=== PATIENT | male | born 1965 | race African-American/Black ===

== ENCOUNTER 2017-07-31 13:12 | Inpatient (IN) | payer OTHER ==
[2017-07-31 19:42] VITALS: BMI 27.0
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
[2017-07-31] MEDS ORDERED: ACETAMINOPHEN 325 MG TABLET (FP) PO PRN (21:59)
[2017-07-31] MEDS ORDERED: guaiFENesin/D-METHORPHAN HB 10 ML UNIT-DOSE CUPS PO PRN (21:59)
[2017-07-31] MEDS ORDERED: chlordiazePOXIDE HCL 25 MG CAPSULE PO PRN (21:59)
[2017-07-31] MEDS ORDERED: P-EPHED 60MG/TRIPROLIDI 2.5MG TABLET PO PRN (21:59)
[2017-07-31] MEDS ORDERED: MENTHOL/PHENOL 1 EACH UD MM PRN (21:59)
[2017-07-31] MEDS ORDERED: LOPERAMIDE HCL 2 MG CAPSULE PO PRN (21:59)
[2017-07-31] MEDS ORDERED: NICOTINE POLACRILEX 4 MG GUM BC PRN (21:59)
[2017-07-31] MEDS ORDERED: MAGNESIUM CITRATE 300 ML BOTTLE PO PRN (21:59)
[2017-07-31] MEDS ORDERED: MAG HYDROX/AL HYDROX/SIMETH 30 ML UNIT-DOSE CUP PO PRN (21:59)
[2017-07-31] MEDS ORDERED: MAGNESIUM HYDROX 2400MG/30ML ORAL SUSPENSION 30 ML CUP PO PRN (21:59)
[2017-08-01] MEDS: chlordiazePOXIDE HCL 25 MG CAPSULE PO SCH ×5 (00:01→22:45)
[2017-08-01] MEDS: THIAMINE HCL 100 MG TABLET (FP) PO SCH ×2 (00:01→22:45)
[2017-08-01] MEDS: BACITRACIN 15 GM TUBE TOPICAL OINTMENT TP SCH ×2 (06:11→14:39)
[2017-08-01 10:41] LABS: HEMATOCRIT 40.9 % (35.4-49); HEMOGLOBIN 13.6 GM/dL (11.7-16.9); MCH 35.1 pg (25.7-33.7); MCHC 33.2 g/dl (32.0-35.9); MEAN CELL VOLUME 105.5 fl (80-96); MEAN PLT VOLUME 8.5 fl (7.5-11.1); PLATELET COUNT 208 K/MM3 (134-434); RBC 3.88 M/mm3 (4.00-5.60); RDW 16.2 % (11.9-15.9); WHITE BLOOD COUNT 6.3 K/mm3 (4.0-10.0)
[2017-08-01 10:42] LABS: URINE APPEARANCE CLEAR; URINE BILIRUBIN NEGATIVE (NEGATIVE); URINE BLOOD NEGATIVE (NEGATIVE); URINE COLOR YELLOW; URINE GLUCOSE (UA) NEGATIVE (NEGATIVE); URINE KETONE NEGATIVE (NEGATIVE); URINE LEUK ESTERASE NEGATIVE (NEGATIVE); URINE NITRITE NEGATIVE (NEGATIVE); URINE PROTEIN NEGATIVE (NEGATIVE)
[2017-08-01] MEDS: NICOTINE 14 MG/24 HOURS TOPICAL PATCH TD SCH (10:50)
[2017-08-01] MEDS: PRENATAL VITAMINS W/ FOLIC ACID TABLET (FP) PO SCH (10:50)
[2017-08-01 10:53] LABS: CHLORIDE 105 mmol/L (98-107); POTASSIUM 3.5 mmol/L (3.5-5.1); SODIUM 145 mmol/L (136-145)
[2017-08-01] MEDS: amLODIPine BESYLATE 10 MG TABLET (FP) PO SCH (10:53)
[2017-08-01 11:05] LABS: ALBUMIN 3.4 g/dl (3.4-5.0); ALK PHOS 98 U/L (45-117); ANION GAP 8 (8-16); BILIRUBIN,TOTAL 1.2 mg/dL (0.2-1.0); BLOOD UREA NITROGEN 20 mg/dL (7-18); CALCIUM 8.8 mg/dL (8.5-10.1); CO2 32 mmol/L (21-32); CREATININE 1.3 mg/dL (0.7-1.3); GLUCOSE,RANDOM 83 mg/dL (74-106); SGOT/AST 32 U/L (15-37); SGPT/ALT 37 U/L (12-78); TOT PROT 6.4 g/dl (6.4-8.2)
--- NOTE | 2017-08-01 11:48 | CONSULT ---
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 Substance Abuse History: Confirmed by patient in this session.Details in current [facility] report : Smoking history: Current every day smoker. Have you smoked in the past 12 months: Yes. Aproximately how many cigarettes per day: 10. Hx Chewing Tobacco Use: No. Initiated information on smoking cessation: Yes. 'Breaking Loose' booklet given: 07/31/17. - Substance & Tx. History. Hx Alcohol Use: Yes. Hx Substance Use: Yes. Substance Use Type: Alcohol, Cocaine , Marijuana, Tranquilizers (PCP). Hx Substance Use Treatment: Yes ([facility]I). - Substances Abused. VODKA. Route: Oral. Frequency: Daily. Amount used: 2 PINTS. Age of first use: 19. Date of Last Use: 07/31/17 (1/2 PINT) Medical History: Hypertension and glaucoma in both eyes.Noted history of penile implant in 2015. Psychiatric History: No reported history of psychiatric hospitaizations.Patient informs that he is currently followed at the [facility] health clinic in [facility].Under medication management : seroquel 200 mg/hs.Diagnosed with Intermittent Explosive Disorder.Las toook his medication " a couple of days ago ".Mr Almanzar denies history of suicide attempts. Physical/Sexual Abuse/Trauma History: Patient denies. Additional Comment: Urine Drug Screen Results: THC-Marijuana, WALESKA-Cocaine, PCP- Phencyclidine.Noted. Mental Status Exam - Mental Status Exam Alert and Oriented to: Time, Place, Person Cognitive Function: Good Patient Appearance: Well Groomed Mood: Nervous, Withdrawn (dysphoric) Affect: Mood Congruent Patient Behavior: Appropriate, Cooperative Speech Pattern: Clear Voice Loudness: Normal Thought Process: Intact, Goal Oriented Thought Disorder: Not Present Hallucinations: Denies Suicidal Ideation: Denies Homicidal Ideation: Denies Insight/Judgement: Poor Sleep: Poorly, Difficulty falling asleep Appetite: Good Muscle strength/Tone: Normal Gait/Station: Normal Psychiatric Findings - Problem List (Adams 1, 2,3) (1) Alcohol dependence with uncomplicated withdrawal Current Visit: Yes Status: Acute (2) Cocaine dependence Current Visit: Yes Status: Acute Qualifiers: Substance use status: uncomplicated Qualified Code(s): F14.20 - Cocaine dependence, uncomplicated (3) Marijuana dependence Current Visit: Yes Status: Chronic (4) PCP dependence Current Visit: Yes Status: Chronic (5) Nicotine dependence Current Visit: Yes Status: Chronic Qualifiers: Nicotine product type: cigarettes Substance use status: uncomplicated Qualified Code(s): F17.210 - Nicotine dependence, cigarettes, uncomplicated (6) Substance induced mood disorder Current Visit: Yes Status: Acute (7) Insomnia Current Visit: Yes Status: Acute - Initial Treatment Plan Initial Treatment Plan: Records revisited.Psychoeducation provided in this session.Detoxification in progress.Seroquel 100 mg po hs.Ordered at patient's request (dose intentionally reduced as caution for oversedation).Side effects/ benefits discussed.Patient made aware f potential for oversedation,falls, metabolic syndrome and cardiovascular adverse events.Consent (verbal) given for this plan of care.Observation.[facility] contacted at [phone] (with patient's verbal permission) : no new claims since 2014 and NO script for seroquel.
--- NOTE | 2017-08-01 12:16 | PN ---
S CIWA - CIWA Score Nausea/Vomitin Muscle Tremors: 2 Anxiety: 2 Agitation: 2 Paroxysmal Sweats: 2 Orientation: 0-Oriented Tacttile Disturbances: 1-Very Mild Itch/Numbness Auditory Disturbances: 1-Very Mild Visual Disturbances: 1-Very Mild Sensitivity Headache: 2-Mild CIWA-Ar Total Score: 15 S Progress Note (SOAP) Subjective: Shakes, sweats,diarrhea, bone pain Objective: 08/01/17 12:15 Vital Signs - 8 hr 08/01/17 08/01/17 06:33 09:19 Temperature 97.6 F 97.2 F L Pulse Rate 76 83 Respiratory 18 18 Rate Blood Pressure 145/101 144/104 Laboratory Last Values WBC 6.3 K/mm3 (4.0-10.0) 08/01/17 08:00 RBC 3.88 M/mm3 (4.00-5.60) L 08/01/17 08:00 Hgb 13.6 GM/dL (11.7-16.9) 08/01/17 08:00 Hct 40.9 % (35.4-49) 08/01/17 08:00 MCV 105.5 fl (80-96) H 08/01/17 08:00 MCH 35.1 pg (25.7-33.7) H 08/01/17 08:00 MCHC 33.2 g/dl (32.0-35.9) 08/01/17 08:00 RDW 16.2 % (11.9-15.9) H D 08/01/17 08:00 Plt Count 208 K/MM3 (134-434) 08/01/17 08:00 MPV 8.5 fl (7.5-11.1) 08/01/17 08:00 Sodium 145 mmol/L (136-145) 08/01/17 08:00 Potassium 3.5 mmol/L (3.5-5.1) 08/01/17 08:00 Chloride 105 mmol/L (98-107) 08/01/17 08:00 Carbon Dioxide 32 mmol/L (21-32) 08/01/17 08:00 Anion Gap 8 (8-16) 08/01/17 08:00 BUN 20 mg/dL (7-18) H D 08/01/17 08:00 Creatinine 1.3 mg/dL (0.7-1.3) 08/01/17 08:00 Creat Clearance w eGFR 58.20 (>60) 08/01/17 08:00 Random Glucose 83 mg/dL (74-106) D 08/01/17 08:00 Calcium 8.8 mg/dL (8.5-10.1) 08/01/17 08:00 Total Bilirubin 1.2 mg/dL (0.2-1.0) H 08/01/17 08:00 AST 32 U/L (15-37) D 08/01/17 08:00 ALT 37 U/L (12-78) 08/01/17 08:00 Alkaline Phosphatase 98 U/L (45-117) 08/01/17 08:00 Total Protein 6.4 g/dl (6.4-8.2) 08/01/17 08:00 Albumin 3.4 g/dl (3.4-5.0) 08/01/17 08:00 Urine Color Yellow 08/01/17 09:00 Urine Appearance Clear 08/01/17 09:00 Urine pH 7.0 (5.0-8.0) D 08/01/17 09:00 Ur Specific [place] 1.017 (1.001-1.035) 08/01/17 09:00 Urine Protein Negative (NEGATIVE) 08/01/17 09:00 Urine Glucose (UA) Negative (NEGATIVE) 08/01/17 09:00 Urine Ketones Negative (NEGATIVE) 08/01/17 09:00 Urine Blood Negative (NEGATIVE) 08/01/17 09:00 Urine Nitrite Negative (NEGATIVE) 08/01/17 09:00 Urine Bilirubin Negative (NEGATIVE) 08/01/17 09:00 Urine Urobilinogen 2.0 mg/dL (0.2-1.0) 08/01/17 09:00 Ur Leukocyte Esterase Negative (NEGATIVE) 08/01/17 09:00 HIV 1&2 Antibody Screen Negative 08/01/17 08:00 HIV P24 Antigen Negative 08/01/17 08:00 Labs noted Assessment: 08/01/17 12:15 Withdrawal sx Plan: Continue detox
--- NOTE | 2017-08-01 16:43 | EKG ---
Test Reason : Blood Pressure : / mmHG Vent. Rate : 079 BPM Atrial Rate : 079 BPM P-R Int : 148 ms QRS Dur : 094 ms QT Int : 406 ms P-R-T Axes : 066 029 028 degrees QTc Int : 465 ms NORMAL SINUS RHYTHM POSSIBLE LEFT ATRIAL ENLARGEMENT LEFT VENTRICULAR HYPERTROPHY ABNORMAL ECG NO PREVIOUS ECGS AVAILABLE Confirmed by ISABELLA PEREZ MD ([id number]) on 08/01/2017 4:43:16 PM Referred By: Confirmed By:ISABELLA PEREZ MD
[2017-08-01] MEDS: BACITRACIN 0.9 GM PACKET TP SCH (22:45)
[2017-08-01] MEDS: QUEtiapine FUMARATE 100 MG TABLET (FP) PO SCH (22:45)
[2017-08-01] MEDS: LATANOPROST 0.005% OPHTH SOLN 2.5ML BOTTLE OU SCH (22:46)
[2017-08-01] MEDS: IBUPROFEN 400 MG TABLET (FP) PO PRN (22:47)
[2017-08-02] MEDS: chlordiazePOXIDE HCL 25 MG CAPSULE PO SCH ×3 (07:34→17:17)
[2017-08-02] MEDS: NICOTINE 14 MG/24 HOURS TOPICAL PATCH TD SCH (10:43)
[2017-08-02] MEDS: BACITRACIN 0.9 GM PACKET TP SCH ×2 (10:43→22:37)
[2017-08-02] MEDS: amLODIPine BESYLATE 10 MG TABLET (FP) PO SCH (10:43)
[2017-08-02] MEDS: PRENATAL VITAMINS W/ FOLIC ACID TABLET (FP) PO SCH (10:43)
--- NOTE | 2017-08-02 16:38 | PN ---
BHS CIWA - CIWA Score Nausea/Vomitin Muscle Tremors: 3 Anxiety: 3 Agitation: 3 Paroxysmal Sweats: 2 Orientation: 0-Oriented Tacttile Disturbances: 0-None Auditory Disturbances: 0-None Visual Disturbances: 0-None Headache: 0-None Present CIWA-Ar Total Score: 13 BHS Progress Note (SOAP) Subjective: tremors sweats "some sleep disturbance" Objective: 08/02/17 16:36 Vital Signs Temperature 98.6 F 08/02/17 14:24 Pulse Rate 90 08/02/17 14:24 Respiratory Rate 20 08/02/17 14:24 Blood Pressure 141/96 08/02/17 14:24 O2 Sat by Pulse Oximetry (%) Assessment: 08/02/17 16:37 withdrawal sx Plan: continue detox
[2017-08-02] MEDS: QUEtiapine FUMARATE 100 MG TABLET (FP) PO SCH (22:37)
[2017-08-02] MEDS: THIAMINE HCL 100 MG TABLET (FP) PO SCH (22:37)
[2017-08-02] MEDS: LATANOPROST 0.005% OPHTH SOLN 2.5ML BOTTLE OU SCH (22:37)
[2017-08-02] MEDS: IBUPROFEN 400 MG TABLET (FP) PO PRN (22:38)
[2017-08-02] MEDS: chlordiazePOXIDE 5 MG CAPSULE PO SCH (22:38)
[2017-08-03] MEDS: chlordiazePOXIDE 5 MG CAPSULE PO SCH ×3 (05:40→17:26)
[2017-08-03] MEDS: amLODIPine BESYLATE 10 MG TABLET (FP) PO SCH (10:47)
[2017-08-03] MEDS: BACITRACIN 0.9 GM PACKET TP SCH ×2 (10:47→22:24)
[2017-08-03] MEDS: PRENATAL VITAMINS W/ FOLIC ACID TABLET (FP) PO SCH (10:47)
[2017-08-03] MEDS: NICOTINE 14 MG/24 HOURS TOPICAL PATCH TD SCH (10:48)
--- NOTE | 2017-08-03 12:48 | PN ---
BHS Progress Note (SOAP) Subjective: CALM ,FATIGUE, OOB WITH STAEDY GAIT.. Objective: 08/03/17 12:46 Vital Signs Temperature 97.5 F L 08/03/17 09:27 Pulse Rate 81 08/03/17 09:27 Respiratory Rate 18 08/03/17 09:27 Blood Pressure 123/89 08/03/17 09:27 O2 Sat by Pulse Oximetry (%) Laboratory Last Values WBC 6.3 K/mm3 (4.0-10.0) 08/01/17 08:00 RBC 3.88 M/mm3 (4.00-5.60) L 08/01/17 08:00 Hgb 13.6 GM/dL (11.7-16.9) 08/01/17 08:00 Hct 40.9 % (35.4-49) 08/01/17 08:00 MCV 105.5 fl (80-96) H 08/01/17 08:00 MCH 35.1 pg (25.7-33.7) H 08/01/17 08:00 MCHC 33.2 g/dl (32.0-35.9) 08/01/17 08:00 RDW 16.2 % (11.9-15.9) H D 08/01/17 08:00 Plt Count 208 K/MM3 (134-434) 08/01/17 08:00 MPV 8.5 fl (7.5-11.1) 08/01/17 08:00 Sodium 145 mmol/L (136-145) 08/01/17 08:00 Potassium 3.5 mmol/L (3.5-5.1) 08/01/17 08:00 Chloride 105 mmol/L (98-107) 08/01/17 08:00 Carbon Dioxide 32 mmol/L (21-32) 08/01/17 08:00 Anion Gap 8 (8-16) 08/01/17 08:00 BUN 20 mg/dL (7-18) H D 08/01/17 08:00 Creatinine 1.3 mg/dL (0.7-1.3) 08/01/17 08:00 Creat Clearance w eGFR 58.20 (>60) 08/01/17 08:00 Random Glucose 83 mg/dL (74-106) D 08/01/17 08:00 Calcium 8.8 mg/dL (8.5-10.1) 08/01/17 08:00 Total Bilirubin 1.2 mg/dL (0.2-1.0) H 08/01/17 08:00 AST 32 U/L (15-37) D 08/01/17 08:00 ALT 37 U/L (12-78) 08/01/17 08:00 Alkaline Phosphatase 98 U/L (45-117) 08/01/17 08:00 Total Protein 6.4 g/dl (6.4-8.2) 08/01/17 08:00 Albumin 3.4 g/dl (3.4-5.0) 08/01/17 08:00 Urine Color Yellow 08/01/17 09:00 Urine Appearance Clear 08/01/17 09:00 Urine pH 7.0 (5.0-8.0) D 08/01/17 09:00 Ur Specific [place] 1.017 (1.001-1.035) 08/01/17 09:00 Urine Protein Negative (NEGATIVE) 08/01/17 09:00 Urine Glucose (UA) Negative (NEGATIVE) 08/01/17 09:00 Urine Ketones Negative (NEGATIVE) 08/01/17 09:00 Urine Blood Negative (NEGATIVE) 08/01/17 09:00 Urine Nitrite Negative (NEGATIVE) 08/01/17 09:00 Urine Bilirubin Negative (NEGATIVE) 08/01/17 09:00 Urine Urobilinogen 2.0 mg/dL (0.2-1.0) 08/01/17 09:00 Ur Leukocyte Esterase Negative (NEGATIVE) 08/01/17 09:00 RPR Titer Nonreactive (NONREACTIVE) 08/01/17 08:00 HIV 1&2 Antibody Screen Negative 08/01/17 08:00 HIV P24 Antigen Negative 08/01/17 08:00 Assessment: 08/03/17 12:47 DECREASED WITHDRAWAL SX Plan: CONTINUE DETOX
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
[2017-08-03] MEDS: QUEtiapine FUMARATE 100 MG TABLET (FP) PO SCH (22:24)
[2017-08-03] MEDS: THIAMINE HCL 100 MG TABLET (FP) PO SCH (22:24)
[2017-08-03] MEDS: chlordiazePOXIDE HCL 10 MG CAPSULE PO SCH (22:24)
[2017-08-03] MEDS: LATANOPROST 0.005% OPHTH SOLN 2.5ML BOTTLE OU SCH (22:25)
[2017-08-04] MEDS: chlordiazePOXIDE HCL 10 MG CAPSULE PO SCH ×2 (05:52→10:56)
[2017-08-04] MEDS: BACITRACIN 0.9 GM PACKET TP SCH (10:45)
[2017-08-04] MEDS: PRENATAL VITAMINS W/ FOLIC ACID TABLET (FP) PO SCH (10:45)
[2017-08-04] MEDS: NICOTINE 14 MG/24 HOURS TOPICAL PATCH TD SCH (10:46)
[2017-08-04] MEDS: amLODIPine BESYLATE 10 MG TABLET (FP) PO SCH (10:46)
--- NOTE | 2017-08-04 12:01 | DS ---
[facility] Detox Discharge Summary Admission Date: 07/31/17 Discharge Date: 08/04/17 - History Present History: Alcohol Dependence, Cocaine Dependence Additional Comments: DETOX COMPLETED. ALERT O X 3. PT REPORTS HE HAS A PRIMARY PROVIDER, DR MAGDALENA JOE AT [id number] [place] [address]. PT HAS BEEN REMINDED TO FOLLOW UP FOR HIS MEDICAL MANAGEMENT WITH HIS PMD. THIRTY DAYS ONLY RX FOR EYE DROP AND NORVASC TRANSMITTED TO PT'S PHARMACY TODAY. - Physical Exam Results Vital Signs: Vital Signs Temperature 99.5 F 08/04/17 10:15 Pulse Rate 92 H 08/04/17 10:15 Respiratory Rate 18 08/04/17 10:15 Blood Pressure 104/80 08/04/17 10:15 O2 Sat by Pulse Oximetry (%) Pertinent Admission Physical Exam Findings: WITHDRAWAL SX Laboratory Last Values WBC 6.3 K/mm3 (4.0-10.0) 08/01/17 08:00 RBC 3.88 M/mm3 (4.00-5.60) L 08/01/17 08:00 Hgb 13.6 GM/dL (11.7-16.9) 08/01/17 08:00 Hct 40.9 % (35.4-49) 08/01/17 08:00 MCV 105.5 fl (80-96) H 08/01/17 08:00 MCH 35.1 pg (25.7-33.7) H 08/01/17 08:00 MCHC 33.2 g/dl (32.0-35.9) 08/01/17 08:00 RDW 16.2 % (11.9-15.9) H D 08/01/17 08:00 Plt Count 208 K/MM3 (134-434) 08/01/17 08:00 MPV 8.5 fl (7.5-11.1) 08/01/17 08:00 Sodium 145 mmol/L (136-145) 08/01/17 08:00 Potassium 3.5 mmol/L (3.5-5.1) 08/01/17 08:00 Chloride 105 mmol/L (98-107) 08/01/17 08:00 Carbon Dioxide 32 mmol/L (21-32) 08/01/17 08:00 Anion Gap 8 (8-16) 08/01/17 08:00 BUN 20 mg/dL (7-18) H D 08/01/17 08:00 Creatinine 1.3 mg/dL (0.7-1.3) 08/01/17 08:00 Creat Clearance w eGFR 58.20 (>60) 08/01/17 08:00 Random Glucose 83 mg/dL (74-106) D 08/01/17 08:00 Calcium 8.8 mg/dL (8.5-10.1) 08/01/17 08:00 Total Bilirubin 1.2 mg/dL (0.2-1.0) H 08/01/17 08:00 AST 32 U/L (15-37) D 08/01/17 08:00 ALT 37 U/L (12-78) 08/01/17 08:00 Alkaline Phosphatase 98 U/L (45-117) 08/01/17 08:00 Total Protein 6.4 g/dl (6.4-8.2) 08/01/17 08:00 Albumin 3.4 g/dl (3.4-5.0) 08/01/17 08:00 Urine Color Yellow 08/01/17 09:00 Urine Appearance Clear 08/01/17 09:00 Urine pH 7.0 (5.0-8.0) D 08/01/17 09:00 Ur Specific [place] 1.017 (1.001-1.035) 08/01/17 09:00 Urine Protein Negative (NEGATIVE) 08/01/17 09:00 Urine Glucose (UA) Negative (NEGATIVE) 08/01/17 09:00 Urine Ketones Negative (NEGATIVE) 08/01/17 09:00 Urine Blood Negative (NEGATIVE) 08/01/17 09:00 Urine Nitrite Negative (NEGATIVE) 08/01/17 09:00 Urine Bilirubin Negative (NEGATIVE) 08/01/17 09:00 Urine Urobilinogen 2.0 mg/dL (0.2-1.0) 08/01/17 09:00 Ur Leukocyte Esterase Negative (NEGATIVE) 08/01/17 09:00 RPR Titer Nonreactive (NONREACTIVE) 08/01/17 08:00 HIV 1&2 Antibody Screen Negative 08/01/17 08:00 HIV P24 Antigen Negative 08/01/17 08:00 CXR WNL - Treatment Hospital Course: Detox Protocol Followed, Detoxed Safely, Responded well, Discharged Condition Good - Medication Discharge Medications: Ambulatory Orders Amlodipine Besylate [Norvasc -] 10 mg PO DAILY #30 tablet 08/04/17 Latanoprost 0.005% Eye Drops [Xalatan 0.005% Eye Drops -] 1 drop OU HS #1 drops 08/04/17 - Diagnosis (1) Alcohol dependence with uncomplicated withdrawal Current Visit: Yes Status: Acute (2) Cocaine dependence Current Visit: Yes Status: Acute Qualifiers: Substance use status: uncomplicated Qualified Code(s): F14.20 - Cocaine dependence, uncomplicated (3) Nicotine dependence Current Visit: Yes Status: Acute Qualifiers: Nicotine product type: cigarettes Substance use status: in withdrawal Qualified Code(s): F17.213 - Nicotine dependence, cigarettes, with withdrawal (4) Glaucoma Current Visit: Yes Status: Chronic Qualifiers: Glaucoma type: primary angle-closure Primary angle closure glaucoma type: chronic Laterality: bilateral Glaucoma stage: moderate stage Qualified Code(s): H40.2232 - Chronic angle-closure glaucoma, bilateral, moderate stage (5) Hypertension Current Visit: No Status: Chronic Qualifiers: Hypertension type: essential hypertension Qualified Code(s): I10 - Essential (primary) hypertension - AMA Did Patient Leave Against Medical Advice: No
[2017-08-04 13:12] VITALS: BP 125/91; PULSE 96; TEMP 99.4
== END 2017-08-04 13:40 | disposition home or self-care (01) | DRG 774 ==
LOC: YASAS 13:12 → Y3N 22:55
PROVIDERS: ADMIT Internal Medicine; ATTEND Internal Medicine
PROC: HZ2ZZZZ Detoxification Services for Substance Abuse Treatment (ICD-10-PCS; principal; 2017-07-31)
DX: F10.230 Alcohol dependence with withdrawal, uncomplicated (principal); F14.20 Cocaine dependence, uncomplicated; F16.20 Hallucinogen dependence, uncomplicated; F12.20 Cannabis dependence, uncomplicated; F17.213 Nicotine dependence, cigarettes, with withdrawal; F19.24 Other psychoactive substance dependence with psychoactive substance-induced mood disorder; I10 Essential (primary) hypertension; H40.223 Chronic angle-closure glaucoma, bilateral; G47.00 Insomnia, unspecified; E78.00 Pure hypercholesterolemia, unspecified; Z91.010 Allergy to peanuts; Z88.8 Allergy status to other drugs, medicaments and biological substances; W22.8XXA Striking against or struck by other objects, initial encounter; Y93.9 Activity, unspecified; Y92.239 Unspecified place in hospital as the place of occurrence of the external cause
CPT/HCPCS: 36415; 71046-TC; 80053; 81003; 85027; 86593; 87389; 93005; 93010

== ENCOUNTER 2024-04-03 16:14 | Inpatient (IN) | payer OTHER ==
[2024-04-03 16:42] VITALS: BMI 26.9
[2024-04-03] MEDS ORDERED: DICYCLOMINE HCL 10 MG CAPSULE PO PRN (18:48)
[2024-04-03] MEDS ORDERED: BENZONATATE 200 MG CAPSULE PO PRN (18:48)
[2024-04-03] MEDS ORDERED: MAGNESIUM HYDROX 2400MG/30ML ORAL SUSPENSION 30 ML CUP PO PRN (18:48)
[2024-04-03] MEDS ORDERED: MAG HYDROX/AL HYDROX/SIMETH 30 ML UNIT-DOSE CUP PO PRN (18:48)
[2024-04-03] MEDS ORDERED: LOPERAMIDE HCL 2 MG CAPSULE PO PRN (18:48)
[2024-04-03] MEDS ORDERED: ACETAMINOPHEN 325 MG TABLET (FP) PO PRN (18:48)
[2024-04-03] MEDS ORDERED: POLYETHYLENE GLYCOL (HEALTHYLAX) 3350 17 GM PACKET PO PRN (18:48)
[2024-04-03] MEDS ORDERED: BENZOCAINE/MENTHOL (CHLORASEPTIC ) LOZENGE MM PRN (18:48)
[2024-04-03] MEDS ORDERED: IBUPROFEN 400 MG TABLET (FP) PO PRN (18:48)
[2024-04-03] MEDS ORDERED: NALOXONE HCL 0.4 MG/ML VIAL IM PRN (18:48)
[2024-04-03] MEDS ORDERED: guaiFENesin 600 MG TABLET.ER (FP) PO PRN (18:48)
[2024-04-03] MEDS ORDERED: IBUPROFEN 600 MG TABLET (FP) PO PRN (18:48)
[2024-04-03] MEDS ORDERED: NICOTINE POLACRILEX 2 MG GUM BUC PRN (18:48)
[2024-04-03] MEDS ORDERED: BISMUTH SUBSALICYLATE 524 MG/30 ML PO PRN (18:48)
[2024-04-03] MEDS ORDERED: NALOXONE (NARCAN) HCL 4 MG/0.1 ML SPRAY NS PRN (18:48)
[2024-04-03] MEDS: LATANOPROST 0.005% OPHTH SOLN 2.5ML BOTTLE OU SCH (22:46)
[2024-04-03] MEDS: APIXABAN 5 MG TABLET PO SCH (22:48)
[2024-04-03] MEDS: THIAMINE 100 MG TABLET PO SCH (22:48)
[2024-04-03] MEDS: MELATONIN 5 MG TABLETS PO SCH (22:49)
[2024-04-03] MEDS: DORZOLAMIDE HCL/TIMOLOL OPHTHALMIC SOLUTION 10 ML BOTTLE OU SCH (22:50)
[2024-04-03] MEDS: BRIMONIDINE TARTRATE 0.2% OPHTHALMIC 5 ML BOTTLE OU SCH (22:50)
[2024-04-04] MEDS: PRENATAL VITAMINS W/ FOLIC ACID TABLET (FP) PO SCH (10:11)
[2024-04-04] MEDS: amLODIPine BESYLATE 10 MG TABLET (FP) PO SCH (10:11)
[2024-04-04] MEDS: NICOTINE 14 MG/24 HOURS TOPICAL PATCH TD SCH (10:13)
[2024-04-04] MEDS ORDERED: chlordiazePOXIDE HCL 25 MG CAPSULE PO PRN (10:34)
[2024-04-04] MEDS: chlordiazePOXIDE HCL 25 MG CAPSULE PO SCH (11:14)
[2024-04-04] MEDS: ONDANSETRON *ODT* 4 MG TABLET SL PRN (11:15)
[2024-04-04 11:40] LABS: HEMATOCRIT 39.2 % (35.4-49); HEMOGLOBIN 13.3 GM/dL (11.7-16.9); MCH 34.8 pg (25.7-33.7); MCHC 33.8 g/dl (32.0-35.9); MEAN CELL VOLUME 102.9 fl (80-96); MEAN PLT VOLUME 7.1 fl (7.5-11.1); PLATELET COUNT 189 10^3/uL (134-434); RBC 3.81 M/mm3 (4.00-5.60); WHITE BLOOD COUNT 5.1 K/mm3 (4.0-10.0)
[2024-04-04 11:42] LABS: CHLORIDE 104 mmol/L (98-107); POTASSIUM 4.5 mmol/L (3.5-5.1); SODIUM 141 mmol/L (136-145)
[2024-04-04 11:53] LABS: ALBUMIN 3.3 g/dl (3.4-5.0); ANION GAP 5 mmol/L (4-13); BLOOD UREA NITROGEN 16.7 mg/dL (7-18); CO2 32 mmol/L (21-32); GLUCOSE,RANDOM 118 mg/dL (74-106)
[2024-04-04 11:55] LABS: SGOT/AST 61 U/L (15-37); SGPT/ALT 56 U/L (13-61)
[2024-04-04 11:57] LABS: BILIRUBIN,TOTAL 1.2 mg/dL (0.2-1); TOT PROT 6.5 g/dl (6.4-8.2)
[2024-04-04 11:58] LABS: ALK PHOS 102 U/L (45-117)
[2024-04-04] MEDS: METHOCARBAMOL 500 MG TABLET PO PRN (22:18)
[2024-04-06] MEDS: chlordiazePOXIDE HCL 25 MG CAPSULE PO SCH (05:58)
[2024-04-07] MEDS ORDERED: chlordiazePOXIDE HCL 10 MG CAPSULE PO PRN
[2024-04-07] MEDS: chlordiazePOXIDE HCL 10 MG CAPSULE PO SCH (05:55)
[2024-04-07] MEDS: hydrOXYzine PAMOATE 25 MG CAPSULE (FP) PO PRN (22:13)
[2024-04-08] MEDS: chlordiazePOXIDE HCL 10 MG CAPSULE PO SCH (05:51)
[2024-04-08 06:28] VITALS: BP 122/85; PULSE 69; RESP 16; TEMP 97.6
[2024-04-09] MEDS ORDERED: chlordiazePOXIDE HCL 10 MG CAPSULE PO ONE (05:00)
== END 2024-04-08 09:19 | disposition home or self-care (01) | DRG 775 ==
LOC: YASAS 16:14 → Y3N 19:10
PROVIDERS: ADMIT Allergy & Immunology; ATTEND Surgery
PROC: HZ2ZZZZ Detoxification Services for Substance Abuse Treatment (ICD-10-PCS; principal; 2024-04-03)
DX: F10.230 Alcohol dependence with withdrawal, uncomplicated (principal); H40.9 Unspecified glaucoma; I25.10 Atherosclerotic heart disease of native coronary artery without angina pectoris; I10 Essential (primary) hypertension; R76.8 Other specified abnormal immunological findings in serum; Z86.19 Personal history of other infectious and parasitic diseases; Z86.718 Personal history of other venous thrombosis and embolism; Z79.01 Long term (current) use of anticoagulants; Z86.11 Personal history of tuberculosis; Z56.0 Unemployment, unspecified; Z88.8 Allergy status to other drugs, medicaments and biological substances
CPT/HCPCS: 36415; 71046-TC-FY; 80053; 80305; 80307; 85027; 86593; 86780; 93005; 93010; Q0162

== ENCOUNTER 2024-05-07 16:56 | Inpatient (IN) | payer OTHER ==
[2024-05-07 17:41] VITALS: BMI 27.6
[2024-05-07] MEDS ORDERED: BENZOCAINE/MENTHOL (CHLORASEPTIC ) LOZENGE MM PRN (19:17)
[2024-05-07] MEDS ORDERED: IBUPROFEN 400 MG TABLET (FP) PO PRN (19:17)
[2024-05-07] MEDS ORDERED: NALOXONE (NARCAN) HCL 4 MG/0.1 ML SPRAY NS PRN (19:17)
[2024-05-07] MEDS ORDERED: MAG HYDROX/AL HYDROX/SIMETH 30 ML UNIT-DOSE CUP PO PRN (19:17)
[2024-05-07] MEDS ORDERED: IBUPROFEN 600 MG TABLET (FP) PO PRN (19:17)
[2024-05-07] MEDS ORDERED: DICYCLOMINE HCL 10 MG CAPSULE PO PRN (19:17)
[2024-05-07] MEDS ORDERED: chlordiazePOXIDE HCL 25 MG CAPSULE PO PRN (19:17)
[2024-05-07] MEDS ORDERED: ONDANSETRON *ODT* 4 MG TABLET SL PRN (19:17)
[2024-05-07] MEDS ORDERED: MAGNESIUM HYDROX 2400MG/30ML ORAL SUSPENSION 30 ML CUP PO PRN (19:17)
[2024-05-07] MEDS ORDERED: BENZONATATE 200 MG CAPSULE PO PRN (19:17)
[2024-05-07] MEDS ORDERED: POLYETHYLENE GLYCOL (HEALTHYLAX) 3350 17 GM PACKET PO PRN (19:17)
[2024-05-07] MEDS ORDERED: BISMUTH SUBSALICYLATE 524 MG/30 ML PO PRN (19:17)
[2024-05-07] MEDS: APIXABAN 5 MG TABLET PO SCH (22:36)
[2024-05-07] MEDS: guaiFENesin 600 MG TABLET.ER (FP) PO PRN (22:37)
[2024-05-07] MEDS: chlordiazePOXIDE HCL 25 MG CAPSULE PO SCH (22:37)
[2024-05-07] MEDS: THIAMINE 100 MG TABLET PO SCH (22:37)
[2024-05-07] MEDS: MELATONIN 5 MG TABLETS PO SCH (22:38)
[2024-05-07] MEDS: DORZOLAMIDE HCL/TIMOLOL OPHTHALMIC SOLUTION 10 ML BOTTLE OU SCH (22:39)
[2024-05-07] MEDS: BRIMONIDINE TARTRATE 0.2% OPHTHALMIC 5 ML BOTTLE OU SCH (22:42)
[2024-05-07] MEDS: LATANOPROST 0.005% OPHTH SOLN 2.5ML BOTTLE OU SCH (22:44)
[2024-05-08] MEDS: PRENATAL VITAMINS W/ FOLIC ACID TABLET (FP) PO SCH (10:26)
[2024-05-08] MEDS: amLODIPine BESYLATE 10 MG TABLET (FP) PO SCH (10:28)
[2024-05-08] MEDS: LOPERAMIDE HCL 2 MG CAPSULE PO PRN (10:30)
[2024-05-08 11:09] LABS: HEMATOCRIT 37.5 % (35.4-49); HEMOGLOBIN 12.5 GM/dL (11.7-16.9); MCH 34.7 pg (25.7-33.7); MCHC 33.4 g/dl (32.0-35.9); MEAN CELL VOLUME 103.9 fl (80-96); MEAN PLT VOLUME 7.5 fl (7.5-11.1); PLATELET COUNT 184 10^3/uL (134-434); RBC 3.61 M/mm3 (4.00-5.60); RDW 14.4 % (11.9-15.9); WHITE BLOOD COUNT 3.2 K/mm3 (4.0-10.0)
[2024-05-08 11:13] LABS: CHLORIDE 104 mmol/L (98-107); SODIUM 139 mmol/L (136-145)
[2024-05-08 11:15] LABS: CALCIUM 8.7 mg/dL (8.5-10.1)
[2024-05-08 11:16] LABS: ALBUMIN 2.8 g/dl (3.4-5.0); ANION GAP 4 mmol/L (4-13); BLOOD UREA NITROGEN 24.8 mg/dL (7-18); CO2 32 mmol/L (21-32); GLUCOSE,RANDOM 129 mg/dL (74-106)
[2024-05-08 11:19] LABS: CREATININE 1.5 mg/dL (0.55-1.3); SGOT/AST 28 U/L (15-37); SGPT/ALT 35 U/L (13-61)
[2024-05-08 11:21] LABS: BILIRUBIN,TOTAL 1.1 mg/dL (0.2-1); TOT PROT 5.2 g/dl (6.4-8.2)
[2024-05-08 11:22] LABS: ALK PHOS 74 U/L (45-117)
[2024-05-09] MEDS: chlordiazePOXIDE HCL 25 MG CAPSULE PO SCH (05:58)
[2024-05-09] MEDS: METHOCARBAMOL 500 MG TABLET PO PRN (22:15)
[2024-05-09] MEDS: ACETAMINOPHEN 325 MG TABLET (FP) PO PRN (22:18)
[2024-05-10] MEDS ORDERED: chlordiazePOXIDE HCL 10 MG CAPSULE PO PRN
[2024-05-10] MEDS: chlordiazePOXIDE HCL 10 MG CAPSULE PO SCH (05:45)
[2024-05-10] MEDS: hydrOXYzine PAMOATE 25 MG CAPSULE (FP) PO PRN (22:49)
[2024-05-11] MEDS: chlordiazePOXIDE HCL 10 MG CAPSULE PO SCH (05:51)
[2024-05-11 14:51] LABS: BASO % 1.1 % (0-2.0); EOS % 6.3 % (0-4.5); HEMATOCRIT 38.1 % (35.4-49); HEMOGLOBIN 12.9 GM/dL (11.7-16.9); LYMPH % 30.5 % (8-40); MCHC 33.7 g/dl (32.0-35.9); MEAN CELL VOLUME 103.8 fl (80-96); MEAN PLT VOLUME 7.8 fl (7.5-11.1); MONO % 14.3 % (3.8-10.2); NEUT % 47.8 % (42.8-82.8); PLATELET COUNT 221 10^3/uL (134-434); RBC 3.67 M/mm3 (4.00-5.60); RDW 14.2 % (11.9-15.9); WHITE BLOOD COUNT 3.6 K/mm3 (4.0-10.0)
[2024-05-11 16:07] LABS: CALCIUM 9.2 mg/dL (8.5-10.1)
[2024-05-11 16:08] LABS: BLOOD UREA NITROGEN 16.2 mg/dL (7-18)
[2024-05-11 16:09] LABS: ALBUMIN 2.8 g/dl (3.4-5.0)
[2024-05-11 16:11] LABS: CREATININE 1.1 mg/dL (0.55-1.3); PHOSPHOROUS 3.4 mg/dL (2.5-4.9)
[2024-05-12] MEDS: chlordiazePOXIDE HCL 10 MG CAPSULE PO ONE (05:55)
[2024-05-12 10:18] VITALS: BP 101/70; PULSE 74; RESP 16; TEMP 97.6
[2024-05-12] MEDS: NALOXONE (NYS OPIOID OVERDOSE PROGRAM) 4 MG/0.1 ML SPRAY NS PRN (12:47)
== END 2024-05-12 11:31 | disposition home or self-care (01) | DRG 774 ==
LOC: YASAS 16:56 → Y6N 19:39
PROVIDERS: ADMIT Allergy & Immunology; ATTEND Surgery
PROC: HZ2ZZZZ Detoxification Services for Substance Abuse Treatment (ICD-10-PCS; principal; 2024-05-07)
DX: F10.230 Alcohol dependence with withdrawal, uncomplicated (principal); F14.20 Cocaine dependence, uncomplicated; F16.20 Hallucinogen dependence, uncomplicated; F12.20 Cannabis dependence, uncomplicated; F17.210 Nicotine dependence, cigarettes, uncomplicated; H40.223 Chronic angle-closure glaucoma, bilateral; I10 Essential (primary) hypertension; Z87.891 Personal history of nicotine dependence; Z85.46 Personal history of malignant neoplasm of prostate; Z86.11 Personal history of tuberculosis; Z86.19 Personal history of other infectious and parasitic diseases; Z87.828 Personal history of other (healed) physical injury and trauma; Z56.0 Unemployment, unspecified; Z59.00 Homelessness unspecified
CPT/HCPCS: 36415; 80053; 80069; 80305; 80307; 85025; 85027; 86593; 86780

== ENCOUNTER 2024-10-14 14:20 | Inpatient (IN) | payer OTHER ==
[2024-10-14 14:39] VITALS: BMI 26.6
[2024-10-14] MEDS ORDERED: POLYETHYLENE GLYCOL (HEALTHYLAX) 3350 17 GM PACKET PO PRN (14:53)
[2024-10-14] MEDS ORDERED: MAG HYDROX/AL HYDROX/SIMETH 30 ML UNIT-DOSE CUP PO PRN (14:53)
[2024-10-14] MEDS ORDERED: guaiFENesin 600 MG TABLET.ER (FP) PO PRN (14:53)
[2024-10-14] MEDS ORDERED: DICYCLOMINE HCL 10 MG CAPSULE PO PRN (14:53)
[2024-10-14] MEDS ORDERED: ONDANSETRON *ODT* 4 MG TABLET SL PRN (14:53)
[2024-10-14] MEDS ORDERED: NALOXONE (NARCAN) HCL 4 MG/0.1 ML SPRAY NS PRN (14:53)
[2024-10-14] MEDS ORDERED: IBUPROFEN 400 MG TABLET (FP) PO PRN (14:53)
[2024-10-14] MEDS ORDERED: chlordiazePOXIDE HCL 25 MG CAPSULE PO PRN (14:53)
[2024-10-14] MEDS ORDERED: BENZOCAINE/MENTHOL (CHLORASEPTIC ) LOZENGE MM PRN (14:53)
[2024-10-14] MEDS ORDERED: BISMUTH SUBSALICYLATE 524 MG/30 ML PO PRN (14:53)
[2024-10-14] MEDS ORDERED: MAGNESIUM HYDROX 2400MG/30ML ORAL SUSPENSION 30 ML CUP PO PRN (14:53)
[2024-10-14] MEDS ORDERED: IBUPROFEN 600 MG TABLET (FP) PO PRN (14:53)
[2024-10-14] MEDS ORDERED: LOPERAMIDE HCL 2 MG CAPSULE PO PRN (14:53)
[2024-10-14] MEDS ORDERED: BENZONATATE 200 MG CAPSULE PO PRN (14:53)
[2024-10-14] MEDS ORDERED: PRENATAL VITAMINS W/ FOLIC ACID TABLET (FP) PO ONE (16:49)
[2024-10-14] MEDS: PRENATAL VITAMINS W/ FOLIC ACID TABLET (FP) PO SCH (16:53)
[2024-10-14] MEDS: LACTULOSE 20 GM/30 ML UDC (FOR ORAL USE ONLY) PO SCH (17:48)
[2024-10-14] MEDS ORDERED: chlordiazePOXIDE HCL 25 MG CAPSULE PO SCH (23:00)
[2024-10-14] MEDS: DORZOLAMIDE HCL/TIMOLOL OPHTHALMIC SOLUTION 10 ML BOTTLE OU SCH (23:09)
[2024-10-14] MEDS: BRIMONIDINE TARTRATE 0.2% OPHTHALMIC 5 ML BOTTLE OU SCH (23:10)
[2024-10-14] MEDS: LATANOPROST 0.005% OPHTH SOLN 2.5ML BOTTLE OU SCH (23:11)
[2024-10-14] MEDS: APIXABAN 5 MG TABLET PO SCH (23:12)
[2024-10-14] MEDS: LORazepam 2 MG TABLET PO SCH (23:12)
[2024-10-14] MEDS: MELATONIN 5 MG TABLETS PO SCH (23:12)
[2024-10-14] MEDS: THIAMINE 100 MG TABLET PO SCH (23:12)
[2024-10-15] MEDS: ACETAMINOPHEN 325 MG TABLET (FP) PO PRN (05:28)
[2024-10-15] MEDS: METHOCARBAMOL 500 MG TABLET PO PRN (05:28)
[2024-10-15] MEDS: amLODIPine BESYLATE 10 MG TABLET (FP) PO SCH (10:10)
[2024-10-15 11:16] LABS: HEMATOCRIT 37.5 % (40.1-51.0); HEMOGLOBIN 12.2 g/dL (13.7-17.5); MCHC 32.5 g/dl (32.3-36.5); MEAN CELL VOLUME 99.5 fl (79.0-92.2); MEAN PLT VOLUME 9.3 fl (9.4-12.4); PLATELET COUNT 287 x10^3/uL (163-337); RDW 14.5 % (12.2-16.1)
[2024-10-15 11:26] LABS: POTASSIUM 3.9 mmol/L (3.5-5.1)
[2024-10-15 12:15] LABS: BLOOD UREA NITROGEN 16.2 mg/dL (7-18); CALCIUM 8.5 mg/dL (8.5-10.1)
[2024-10-15 12:16] LABS: ALBUMIN 2.5 g/dl (3.4-5.0)
[2024-10-15 12:18] LABS: CREATININE 1.1 mg/dL (0.55-1.3)
[2024-10-15 12:19] LABS: BILIRUBIN,TOTAL 0.4 mg/dL (0.2-1)
[2024-10-15] MEDS: SUVOREXANT 10 MG TABLET PO PRN (22:12)
[2024-10-16] MEDS ORDERED: chlordiazePOXIDE HCL 25 MG CAPSULE PO SCH (05:00)
[2024-10-16] MEDS: LORazepam 1 MG TABLET PO SCH (05:54)
[2024-10-16] MEDS: hydrOXYzine PAMOATE 25 MG CAPSULE (FP) PO PRN (14:04)
[2024-10-16] MEDS: LORazepam 1 MG TABLET PO PRN (14:05)
[2024-10-17] MEDS ORDERED: chlordiazePOXIDE HCL 10 MG CAPSULE PO PRN
[2024-10-17] MEDS ORDERED: LORazepam 0.5 MG TABLET PO PRN
[2024-10-17] MEDS ORDERED: chlordiazePOXIDE HCL 10 MG CAPSULE PO SCH (05:00)
[2024-10-17] MEDS: LORazepam 0.5 MG TABLET PO SCH (05:59)
[2024-10-18] MEDS ORDERED: chlordiazePOXIDE HCL 10 MG CAPSULE PO SCH (05:00)
[2024-10-18] MEDS: LORazepam 0.5 MG TABLET PO ONE (05:27)
[2024-10-18 08:43] VITALS: BP 126/89; PULSE 70; RESP 18; TEMP 97.1
[2024-10-19] MEDS ORDERED: chlordiazePOXIDE HCL 10 MG CAPSULE PO ONE (05:00)
== END 2024-10-18 09:38 | disposition home or self-care (01) | DRG 774 ==
LOC: YASAS 14:20 → Y3N 15:47
PROVIDERS: ADMIT Allergy & Immunology; ATTEND Allergy & Immunology
PROC: HZ2ZZZZ Detoxification Services for Substance Abuse Treatment (ICD-10-PCS; principal; 2024-10-14)
DX: F10.230 Alcohol dependence with withdrawal, uncomplicated (principal); F14.20 Cocaine dependence, uncomplicated; F12.20 Cannabis dependence, uncomplicated; F17.210 Nicotine dependence, cigarettes, uncomplicated; F63.81 Intermittent explosive disorder; G62.9 Polyneuropathy, unspecified; H54.61 Unqualified visual loss, right eye, normal vision left eye; H40.9 Unspecified glaucoma; I10 Essential (primary) hypertension; Z85.46 Personal history of malignant neoplasm of prostate; Z86.11 Personal history of tuberculosis; Z86.711 Personal history of pulmonary embolism; Z79.01 Long term (current) use of anticoagulants; Z86.718 Personal history of other venous thrombosis and embolism; Z59.02 Unsheltered homelessness
CPT/HCPCS: 36415; 80053; 80305; 80307; 82140; 85027; 86593; 86780; 93005; 93010